=== PATIENT | female | born 1930 | race Caucasian/White ===

== ENCOUNTER 2016-04-19 11:05 | Inpatient (IN) | payer MEDICAID, MEDICARE ==
[~2016-04-19] VITALS: Ht 157.5 cm; Wt 41.6 kg
[2016-04-19] MEDS ORDERED: CEFTRIAXONE 1 GM VIAL ONE (16:09)
[2016-04-19] MEDS ORDERED: SODIUM CHLORIDE 0.9% 100 ML IV ONE (16:10)
[2016-04-19] MEDS ORDERED: SODIUM CHLORIDE 0.9% 1,000 ML IV SCH (16:25)
[2016-04-19] MEDS ORDERED: BISACODYL EC 5 MG TAB PO PRN (16:25)
[2016-04-19] MEDS ORDERED: SALINE FLUSH 10 ML FLUSH PRN (16:25)
[2016-04-19] MEDS ORDERED: GLUCAGON 1 MG VIAL IM PRN (16:25)
[2016-04-19] MEDS ORDERED: MAG HYDROX 30 ML UDC PO PRN (16:25)
[2016-04-19] MEDS ORDERED: PHARMACY TO DOSE IV SCH (16:25)
[2016-04-19] MEDS ORDERED: ALU/MAG/SIM 30 ML UDC PO PRN (16:25)
[2016-04-19] MEDS ORDERED: DEXTROSE 50% SYRINGE 50 ML IV PRN (16:25)
[2016-04-19] MEDS ORDERED: ONDANSETRON 4 MG VIAL IV PRN (16:25)
[2016-04-19] MEDS ORDERED: [UNRECOGNIZED DRUG - REMARK] XX SCH (17:57)
[2016-04-19 18:09] VITALS: BP_SYST 149; RESP 16; TEMP 97.4
[2016-04-19 18:10] VITALS: BMI 16.8
[2016-04-19] MEDS: PANTOPRAZOLE 40 MG TAB PO SCH (18:29)
[2016-04-19 19:52] VITALS: BP_SYST 151; RESP 18; TEMP 98.2
[2016-04-19] MEDS: Meropenem 500 MG in SODIUM CHLORIDE 0.9% 100 ML IV SCH (20:03)
[2016-04-19] MEDS: SALINE FLUSH 10 ML FLUSH SCH (20:03)
[2016-04-19] MEDS: ACETAMINOPHEN 325 MG TAB PO PRN (21:44)
[2016-04-19 23:26] VITALS: RESP 16
[2016-04-19 23:28] VITALS: BP_SYST 138; RESP 18; TEMP 98.5
[2016-04-20] VITALS (7 sets, daily range): BP systolic 94–167; RESP 16; TEMP 97.7–99.1; Ht 157.5 cm; Wt 41.6 kg
[2016-04-20] MEDS: SODIUM CHLORIDE 0.9% FLUSH BAG 500 ML IV SCH ×2 (06:00→06:16)
[2016-04-20] MEDS: PANTOPRAZOLE 40 MG TAB PO SCH (06:07)
[2016-04-20] MEDS: Meropenem 500 MG in SODIUM CHLORIDE 0.9% 100 ML IV SCH ×2 (08:23→20:16)
[2016-04-20] MEDS: ENOXAPARIN 30 MG/0.3 ML SYR SUBQ SCH (08:23)
[2016-04-20] MEDS: SALINE FLUSH 10 ML FLUSH SCH ×2 (08:24→20:16)
[2016-04-20] MEDS ORDERED: DONEPEZIL 10 MG TABLET PO SCH (13:50)
[2016-04-20] MEDS: ASPIRIN 81 MG CHEW TAB PO SCH (14:42)
[2016-04-20] MEDS: OXYBUTYNIN 5 MG TAB PO SCH ×2 (14:42→20:16)
[2016-04-20] MEDS: DONEPEZIL HCL 5 MG TAB PO SCH (14:42)
[2016-04-20] MEDS ORDERED: [UNRECOGNIZED DRUG - OTHER] PO SCH (21:00)
[2016-04-20] MEDS ORDERED: VENLAFAXINE XR 150 MG CAP PO SCH (21:00)
[2016-04-20] MEDS ORDERED: MEMANTINE HCL PO SCH (21:00)
[2016-04-21] VITALS (7 sets, daily range): BP systolic 140–166; RESP 16–20; TEMP 97.3–98.6
[2016-04-21] MEDS: SODIUM CHLORIDE 0.9% FLUSH BAG 500 ML IV SCH (06:19)
[2016-04-21] MEDS: PANTOPRAZOLE 40 MG TAB PO SCH (06:19)
[2016-04-21] MEDS: Meropenem 500 MG in SODIUM CHLORIDE 0.9% 100 ML IV SCH (08:48)
[2016-04-21] MEDS: DONEPEZIL HCL 5 MG TAB PO SCH (08:49)
[2016-04-21] MEDS: OXYBUTYNIN 5 MG TAB PO SCH (08:49)
[2016-04-21] MEDS: SALINE FLUSH 10 ML FLUSH SCH (08:49)
[2016-04-21] MEDS: ASPIRIN 81 MG CHEW TAB PO SCH (08:49)
[2016-04-21] MEDS: ENOXAPARIN 30 MG/0.3 ML SYR SUBQ SCH (08:49)
[2016-04-21] MEDS ORDERED: OPTIRAY 350 100 ML VIAL HMH IV ONE (14:02)
[2016-04-21] MEDS ORDERED: LEVOFLOXACIN 250 MG TAB PO SCH (16:25)
[2016-04-21] MEDS: ACETAMINOPHEN 325 MG TAB PO PRN (16:45)
== END 2016-04-21 16:55 | disposition home or self-care (01) | DRG 690 ==
LOC: ENRESERVTM → ENRESERVDT → ER 11:05 → EMR 16:55 → ENPENDDIS 16:55 → PCU2 17:50
PROVIDERS: ADMIT Family Medicine Addiction Medicine; ATTEND Family Medicine Addiction Medicine
DX: N39.0 Urinary tract infection, site not specified (principal); R55 Syncope and collapse; E11.9 Type 2 diabetes mellitus without complications; Z79.84 Long term (current) use of oral hypoglycemic drugs; R15.9 Full incontinence of feces; R32 Unspecified urinary incontinence; B96.1 Klebsiella pneumoniae [K. pneumoniae] as the cause of diseases classified elsewhere; I10 Essential (primary) hypertension; F03.90 Unspecified dementia, unspecified severity, without behavioral disturbance, psychotic disturbance, mood disturbance, and anxiety; I25.10 Atherosclerotic heart disease of native coronary artery without angina pectoris; Z95.1 Presence of aortocoronary bypass graft; R53.1 Weakness; I65.22 Occlusion and stenosis of left carotid artery; Z86.73 Personal history of transient ischemic attack (TIA), and cerebral infarction without residual deficits; Z87.891 Personal history of nicotine dependence; Z79.82 Long term (current) use of aspirin
CPT/HCPCS: 36415; 70450; 70498; 71020; 80048; 80053; 81001; 82553; 82947; 84439; 84443; 84484; 85025; 85610; 85730; 87077; 87088; 87186; 93005; 93306; 93880; 94799; 96365; 99223; 99233; 99239